=== PATIENT | female | born 1950 | race Caucasian/White ===

== ENCOUNTER 2017-01-03 08:23 | Inpatient (IN) | payer MEDICARE, BC ==
[2016-12-15 18:49] LABS: HEMATOCRIT 35.4 % (36.0-48.0); HEMOGLOBIN 11.2 g/dL (12.0-16.0)
[2016-12-15 18:59] LABS: CALCIUM, SERUM 9.2 MG/DL (8.5-10.4); CHLORIDE, SERUM 107 MMOL/L (96-112); CO2 (CARBON DIOXIDE) 25 MMOL/L (24-34); CREATININE 1.04 MG/DL (0.55-1.02); GFR AFRICAN AMERICAN 65 ML/MIN (>=60); GFR NON AFRICAN AMERICAN 56 ML/MIN (>=60); SODIUM, SERUM 143 MMOL/L (135-148)
[2016-12-15 19:00] LABS: BUN (BLOOD UREA NITROGEN) 19 MG/DL (6-23); GLUCOSE, SERUM 80 MG/DL (60-99)
--- NOTE | ~2017-01-03 | PREOPHP ---
PreOp History and Physical [address] [place]. [address] NAME: DEYSI PARRA : 50 STATUS : ADM IN [facility]#: [id number] AGE: 66 ADM/REG DATE : 01/03/17 MR#: [id number] REPORT SERV DATE: 01/03/17 DICTATED BY: DERRICK BEST DATE: 01/03/17 REPORT STATUS : Draft TRANSCRIBED BY: KENYA DATE: 01/03/17 CHIEF COMPLAINT: Back pain. HISTORY OF PRESENT ILLNESS: She is a 66-year-old female with intractable lower back pain and bilateral lower extremity pain, left side greater than right. She has failed multiple attempts at conservative treatment including injections, physical therapy, and medications. After discussion of risks and benefits, she elected to proceed with surgical intervention. REVIEW OF SYSTEMS: She denies chest pain, shortness of breath, and bowel or bladder changes. ALLERGIES: COMPAZINE. HOME MEDICATIONS: Include benzonatate, citalopram, clonidine, famotidine, gabapentin, gemfibrozil, loratadine, losartan, omeprazole, Zofran, pantoprazole, potassium, prednisone, simvastatin, verapamil, zolpidem. FAMILY HISTORY: Noncontributory. PAST MEDICAL HISTORY: Anemia, anxiety, osteoarthritis, hypertension, diet-controlled diabetes, high cholesterol, stroke, peripheral neuropathy, seizure disorder, gastric reflux, and bronchitis. PHYSICAL EXAMINATION: VITAL SIGNS: Height 5 feet 4 inches, weight 229, BMI 39.3. GENERAL: The patient is healthy appearing, in no acute distress. PSYCH: Alert and oriented x3. Normal mood and affect. GAIT: Antalgic. VASCULAR: No extremity swelling. SPINE: Decreased lumbar motion. NEUROLOGIC: Strength in lower extremities remains 5/5. No focal deficits. HEART: Regular rate and rhythm. LUNGS: Clear to auscultation. ABDOMEN: Soft, nontender, nondistended. Good bowel sounds. BREASTS AND RECTAL: Both deferred. IMAGING: I have reviewed the MRI scan. The patient does have L3 through S1 disk disease and stenosis with nerve compression. ASSESSMENT: L3 through S1 disk disease and stenosis, failed conservative treatment. PLAN: The patient presents today for surgical intervention. Consent was obtained. All questions answered. She is ready to proceed with surgery. JCE/MODL PreOp History and Physical [address] [place] [address] NAME: DEYSI PARRA : 50 STATUS : ADM IN PAT#: [id number] AGE: 66 ADM/REG DATE : 01/03/17 MR#: [id number] REPORT SERV DATE: 01/03/17 DICTATED BY: DERRICK BEST DATE: 01/03/17 REPORT STATUS : Draft TRANSCRIBED BY: KENYA DATE: 01/03/17 Derrick Best DO / [id number] CC: DO Sarkis Stanford M.D.
--- NOTE | ~2017-01-03 | DS ---
Discharge Summary [facility] [address] [place]. [address] NAME: DEYSI PARRA : 50 STATUS : DIS IN PAT#: [id number] AGE: 66 ADM/REG DATE : 01/03/17 MR#: [id number] REPORT SERV DATE: 01/20/17 DICTATED BY: DERRICK MORALES DATE: 01/19/17 REPORT STATUS : Draft TRANSCRIBED BY: KENYA DATE: 01/19/17 Data Collection from hospitalization DISCHARGE DIAGNOSES: 1. 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 2. Diet-controlled diabetes. 3. Hypertension. 4. Anemia. 5. Anxiety. 6. Osteoarthritis. 7. Hypercholesterolemia. 8. History of stroke. 9. Peripheral neuropathy. 10.Seizure disorder. 11.Gastric reflux. 12.Bronchitis. 13.Obstructive sleep apnea. 14.Anemia. 15.History of cerebral meningioma. 16.Irritable bowel syndrome. 17.Gastroesophageal reflux disease. CONSULTATIONS: Sabi Palacios NP PROCEDURES PERFORMED: L3 through S1 open laminectomy and bilateral foraminotomies with decompression of the L3 through S1 nerve roots bilaterally, L3 through S1 posterolateral fusion bilaterally, L3 through S1 posterior segmental spinal instrumentation using Medtronic pedicle screws, local morcellized autograft, allograft bone matrix, neuromonitoring, intraoperative O-arm CT scan with computer navigation on 01/03/2017. PATHOLOGY: Bone and soft tissue, lumbar spine - bone and fibrocartilage, no significant microscopic abnormality. MEDICATIONS: Celexa 20 mg every morning, Pepcid 40 mg at bedtime, Neurontin 800 mg twice a day, Keppra 500 mg twice a day, Lopid 600 mg twice a day, Claritin 10 mg every morning, Prilosec 20 mg every morning, Catapres 0.1 mg every day at bedtime, Verelan PM 300 mg every morning, Ventolin two puffs via inhaler every six hours as needed, Flexeril 10 mg one tablet every eight hours as needed for spasm, and Percocet 5/325 one to two tablets every four hours as needed for pain. CONDITION AT DISCHARGE: Stable. DISPOSITION: The patient was discharged to [facility] on a diabetic diet with activities as instructed. She would follow up with me two weeks following discharge. HOSPITAL COURSE: This is a 66-year-old female with intractable lower back pain and bilateral lower extremity pain, left side greater than right. She has failed multiple attempts at conservative treatment. The patient has L3 through S1 disk disease and stenosis with lumbar Discharge Summary [place] [id number] [facility] [address] [facility] [place] [address] NAME: DEYSI PARRA : 50 STATUS : DIS IN PAT#: [id number] AGE: 66 ADM/REG DATE : 01/03/17 MR#: [id number] REPORT SERV DATE: 01/20/17 DICTATED BY: DERRICK MORALES DATE: 01/19/17 REPORT STATUS : Draft TRANSCRIBED BY: KENYA DATE: 01/19/17 radiculopathy. Treatment options were discussed and it was elected to proceed with surgical intervention. She was admitted to the hospital at this time for further evaluation and treatment. Upon admission, she was taken to the operating room where she underwent the above-mentioned procedure. She tolerated this well, and there were no complications. Postoperatively, she was seen by Sabi Palacios. The patient has a longstanding history of type 2 diabetes. She had been asked to see the patient regarding diabetes management. The patient said that she rarely checks her blood sugars. She only checks them if she has symptoms and she is diet controlled at home. We were going to initiate diabetic education for her regarding her diet and the importance of monitoring her blood sugars at home. She does have a meter. She recommended initiation of fingerstick blood sugars before meals and at bedtime and check one at 2:00 a.m. x1. She was started on level 2 sliding scale insulin. She does have diabetic neuropathy. Her Neurontin and Celexa were continued. She has obstructive sleep apnea as well as a history of asthma. She uses no CPAP at home. We were going to use O2 to keep her saturations 92% or greater. We would do continuous O2 saturation monitoring while on a FOOD QUALITY TECHNICIAN pump for pain control. She said she does have sleep apnea. We would also continue extensive monitoring and initiate her albuterol as needed and continue her home medication of Claritin. Verapamil and clonidine were continued. She has a history of seizures. She said that she no longer sees Dr. Jessica Ramirez, and her seizures are managed by her primary care physician. Her home dose of Keppra was continued. Her home dose of Lopid was continued for hyperlipidemia. Her Prilosec and Pepcid were going to be continued as well. On postop day #1, her pain was controlled. The FOOD QUALITY TECHNICIAN was discontinued. She did complain of a headache. She was evaluated by Physical Therapy. She underwent diabetes education. On 01/05/2017, she still complained of a headache. She had no chest pain or shortness of breath. She remained afebrile. Blood pressure was controlled. Potassium supplementation was given. On 01/07/2017, her pain was improving. Her headache had also improved. We encouraged her to increase her activity as tolerated. On 01/08/2017, her blood pressure was controlled. The patient is noncompliant with CPAP. The patient continued to complain of a headache. Her physical therapy was placed on hold as she was unable to tolerate any activity due to her headache. On 01/10/2017, she said her headache had resolved after a blood patch was performed. Discharge planning was performed. On 01/11/2017, her pain was controlled. Her headache had resolved. She was evaluated by Physical Therapy. Discharge instructions were given. Due to her improved and stable condition, she was discharged to [facility] with the above-stated instructions. Information collected by: Shaniqua Blank I submit the above information as my discharge summary. PHONG/KENYA Derrick Morales DO / [id number] Discharge Summary [address] [address] NAME: DEYSI PARRA JOHANN : 50 STATUS : DIS IN PAT#: [id number] AGE: 66 ADM/REG DATE : 01/03/17 MR#: [id number] REPORT SERV DATE: 01/20/17 DICTATED BY: DERRICK MORALES DATE: 01/19/17 REPORT STATUS : Draft TRANSCRIBED BY: KENYA DATE: 01/19/17 CC: DO Sarkis Stanford M.D. [facility]
--- NOTE | ~2017-01-03 | CN ---
Consultation Report [place] [address] [place]. [address] NAME: DEYSI PARRA : 50 STATUS : ADM IN PAT#: [id number] AGE: 66 ADM/REG DATE : 01/03/17 MR#: [id number] REPORT SERV DATE: 01/04/17 DICTATED BY: SABI JACOBSEN DATE: 01/03/17 REPORT STATUS : Draft TRANSCRIBED BY: MODRachna DATE: 01/03/17 CONSULTATION REPORT DATE OF CONSULTATION: 01/03/2017 REASON FOR CONSULTATION: Consulted for diabetes management. REQUESTING PHYSICIAN: Derrick Morales DO. IDENTIFYING DATA: 1. PCP, Sarkis Funez M.D. 2. Urologist in the past, Carter eLe M.D. 3. Wrapping Checker, previously saw someone in [place] but she cannot remember the name. No longer seeing him. 4. Orthopedist, Derrick Morales DO. 5. Neurologist, Jessica Ramirez M.D. HISTORY OF PRESENT ILLNESS: This is a pleasant 66-year-old, female, who is presented to Dr. Morales with intractable lower back pain and bilateral lower extremity pain on the left side greater than the right. She failed multiple attempts at conservative outpatient treatment, so she presents for surgery. She is status post L3-S1 open posterior lumbar laminectomy with fusion on 01/03/2017. The patient has a long-standing history of diabetes type 2, history of seizures, CVA, diabetic neuropathy, hyperlipidemia, sleep apnea for which she uses no CPAP, previous laser surgery. We have been consulted to help manage the patient's blood sugars as patient. Presently, the patient states that she rarely checks her blood sugars only if she has symptoms and she is diet controlled at home. The patient's history was obtained through careful interview with the patient, coupled with review of [facility], [facility], hr business partner consultant notes and old medical records. PAST MEDICAL HISTORY: 1. Seizures. 2. Cerebral meningioma in 2008. 3. Anemia. 4. CVA. 5. Diabetic neuropathy of her feet. 6. Hypertension. 7. High cholesterol. 8. Chronic bronchitis and asthma. 9. Myopia and presbyopia. 10.Arthritis. 11.IBS. 12.Renal calculi. 13.Obstructive sleep apnea with no use of CPAP. Consultation Report [facility] [address] [place]. [address] NAME: DEYSI PARRA : 50 STATUS : ADM IN PAT#: [id number] AGE: 66 ADM/REG DATE : 01/03/17 MR#: [id number] REPORT SERV DATE: 01/04/17 DICTATED BY: SABI JACOBSEN DATE: 01/03/17 REPORT STATUS : Draft TRANSCRIBED BY: KENYA DATE: 01/03/17 14.GERD. 15.Diabetes diagnosed in 2002 where she states her average blood sugars were 120-138. HOME MEDICATIONS: 1. Albuterol HFA two puffs inhalation every 6 hours p.r.n., shortness of breath. 2. Celexa 20 mg p.o. every morning. 3. Catapres 0.1 mg tablet every day at bedtime. 4. Pepcid 40 mg p.o. at bedtime. 5. Neurontin 800 mg p.o. twice a day. 6. Lopid 600 mg p.o. twice a day. 7. Keppra 500 mg p.o. twice a day. 8. Claritin 10 mg p.o. every morning. 9. Prilosec 20 mg p.o. every morning. 10.Verapamil extended release 300 mg capsules 300 mg p.o. every morning. ALLERGIES: PHENOTHIAZINE SPECIFICALLY COMPAZINE. SOCIAL HISTORY: The patient is approximately 48 years old. States she has three children. Lives in a two-level home. No smoking. Occasional use of peppermint schnapps. No illicit drug use. FAMILY HISTORY: Father had heart disease, cancer, and arthritis. Mother had heart disease, hypertension, and arthritis. Maternal grandparents had heart disease, hypertension, arthritis, and cancer. SURGICAL HISTORY: 1. Lumbar spinal stenosis surgery in 2008, right elbow surgery 2012, and left hand surgery. 2. Appendectomy in 1991. 3. Right hand surgery in 2008. 4. Anterior cervical discectomy and fusion on 09/06/2016. 5. Hemorrhoidectomy was either she states 2008 or 2009. 6. Cysto with stone removal in 2009. 7. Lithotripsy in 04/2015. 8. Hysterectomy in 1981. 9. in 1979. 10.Colonoscopy in 2010. 11.CyberKnife for cerebral meningioma in 2008. REVIEW OF SYSTEMS: Are negative other than what is included in HPI. The patient is very sleepy but she states she has no chest pain, no nausea or vomiting. No shortness of breath. No fever. No abdominal pain. Displays no agitation. PHYSICAL EXAMINATION: Consultation Report [place] [address] [place]. [address] NAME: DEYSI PARRA : 50 STATUS : ADM IN [facility]#: [id number] AGE: 66 ADM/REG DATE : 01/03/17 MR#: [id number] REPORT SERV DATE: 01/04/17 DICTATED BY: SABI JACOBSEN DATE: 01/03/17 REPORT STATUS : Draft TRANSCRIBED BY: KENYA DATE: 01/03/17 VITAL SIGNS: From today, blood pressure 152/87, respiratory rate 14, heart rate 90, O2 saturation 94% on 2 L nasal cannula. GENERAL: This is a very pleasant, 66-year-old, female, resting in bed in no acute distress. She is very sleepy. She will rouse without difficulty. NEURO: Head is atraumatic and normocephalic. The patient is alert and oriented x3. Mood is pleasant and appropriate. Cranial nerves intact. NECK: Supple. Trachea is midline. No JVD noted. No obvious thyromegaly or lymphadenopathy. EENT: Her sclerae is nonicteric. Her pupils are equal, reactive to light. Her nares are patent. Mucous membranes are moist. Tongue is midline without deviation and her soft palate rises with phonation. CHEST: No pain with palpation. LUNGS: Clear to auscultation bilaterally. She has normal respiratory effort. Her O2 saturation is 94% on 2 L nasal cannula. She is encouraged to use her incentive spirometer every one hour while she is awake. CARDIOVASCULAR: S1, S2. No obvious murmurs, rubs, or gallops. Auscultation of rhythm is regular on 12/15/2016. Her EKG showed sinus rhythm with first degree AV block with a rate of 76. She is on defensive monitoring. ABDOMEN: Soft, nontender. She has hypoactive bowel sounds. No organomegaly palpable. EXTREMITIES: Pulses present and equal bilaterally. No edema. No calf tenderness. She has TEDs and SCDs intact. SKIN: Warm and dry. No unusual rashes or lesions. Normal color and turgor. PSYCHIATRIC: She is pleasant and cooperative. Appropriate mood and affect. SURGICAL WOUND SITE: Dressing clean, dry, and intact. She has a Davol drain compressed with sanguinous drainage noted. LABORATORY DATA: Sodium 143, potassium 4.0, chloride 107, BUN 19, creatinine 1.04, GFR 65, glucose 80, calcium 9.2. Hemoglobin 11.2, hematocrit 35.4, blood sugars ranged today 122, 212, and 231. ASSESSMENT AND PLAN: 1. Diabetes type 2: The patient admits to being diabetic and states she is diet controlled and on no medications at home. She does relate that she checks her blood sugars rarely only when she has symptoms of low blood sugar or she feels that her blood sugar is high. We will initiate a diabetic education for her regarding diet and importance of monitoring her blood sugars at home. She does have a meter. We will initiate fingerstick blood sugars a.c. and h.s. and check one at 2 a.m. x1. Start her on a sliding scale insulin level 2. 2. Diabetic neuropathy: Aware. We will continue her Neurontin and Celexa per home medications. 3. Obstructive sleep apnea: She does have a history of asthma as well as allergies also. Aware. She uses no CPAP at home. We will use O2 to keep her sats 92% or greater. We will do continuous O2 saturation monitoring while on a STOCK LETTERER pump for pain control since she has sleep apnea. We will also continue defensive monitoring and initiate her albuterol as needed p.r.n. and continue her home med of Claritin. Consultation Report [address] [place]. [address] NAME: DEYSI PARRA JOHANN : 50 STATUS : ADM IN PAT#: [id number] AGE: 66 ADM/REG DATE : 01/03/17 MR#: [id number] REPORT SERV DATE: 01/04/17 DICTATED BY: SABI JACOBSEN DATE: 01/03/17 REPORT STATUS : Draft TRANSCRIBED BY: KENYA DATE: 01/03/17 4. Hypertension. Aware. We will continue her home medication. She is on verapamil and clonidine daily. 5. Seizures. Aware. She previously has seen Dr. Jessica Ramirez, a neurologist. She states she has no longer been seen her and is managed by her PCP. We will continue her home dose of Keppra. 6. Hyperlipidemia. Aware. We will continue her home medication of Lopid. 7. GERD. Aware. We will continue her Prilosec in the morning and her Pepcid at HS as per home medication. Am. labs will be BMP, magnesium, CBC, and a hemoglobin A1c. The Hospitalist Group would like to thank you for this consultation. Please let us know if we could be of any further assistance. DES Sabi Jacobsen NP / [id number] CC: Derrick Morales DO
--- NOTE | ~2017-01-03 | OP ---
Record Of Operation [facility] [address] [place]. [address] NAME: DEYSI PARRA : 50 STATUS : ADM IN PAT#: [id number] AGE: 66 ADM/REG DATE : 01/03/17 MR#: [id number] REPORT SERV DATE: 01/03/17 DICTATED BY: DERRICK BEST DATE: 01/03/17 REPORT STATUS : Draft TRANSCRIBED BY: MODL DATE: 01/03/17 DATE OF PROCEDURE: 01/03/2017 PREOPERATIVE DIAGNOSIS: L3 through S1 disk disease and stenosis with lumbar radiculopathy. POSTOPERATIVE DIAGNOSIS: L3 through S1 disk disease and stenosis with lumbar radiculopathy. PROCEDURE: L3 through S1 open laminectomy and bilateral foraminotomies with decompression of the L3 through S1 nerve roots bilaterally, L3 through S1 posterolateral fusion bilaterally, L3 through S1 posterior segmental spinal instrumentation using Medtronic pedicle screws, local morcellized autograft allograft bone matrix, neuromonitoring, intraoperative O-arm CT scan with computer navigation. SURGEON: Derrick Best DO ANESTHESIA: General. ESTIMATED BLOOD LOSS: 300 mL. COMPLICATIONS: Durotomy. INDICATIONS: The patient is a 66-year-old with intractable back and leg pain, failed multiple attempts at conservative treatment including injections, therapy, and medications. After discussion of risks and benefits, she elected to proceed with surgical intervention. PROCEDURE IN DETAIL: I identified the patient in the holding area, consent was obtained, answered all of her questions, proceeded with surgery. The patient underwent general anesthesia with endotracheal intubation, prepped and draped in the usual sterile fashion. Operative safety pause was performed, and then we proceeded with surgery. A midline longitudinal incision was made from L3 down to S1, taken down through the fascial layer. Paraspinous muscles subperiosteally elevated to the tips of transverse processes. Self- retaining retractors were placed. The O-arm registration frame was placed on the spinous process. O-arm was brought in for intraoperative CT scan. Computer registration materials were verified. Under computer guidance, pedicle screws from Medtronic were placed from L3 through S1 bilaterally. O-arm was brought back in to verify good placement of instrumentation. Rongeur was then used to remove spinous processes and underlying lamina at L3 through S1. True removed the remaining lamina, underlying ligamentum flavum, and performed foraminotomies and partial facetectomies L3 through S1 to decompress the L3-S1 nerve roots bilaterally. From the patient's previous surgery, there was a significant amount of scar tissue and erosion over portion of the dura that was not amenable to suture repair as there was just a defect over the dural sac. At the end of the case, it was covered with a DuraGen patch and Tisseel sealant for good seal with no further fluid leak. Rods were contoured to appropriate shape and length, placed over the screws L3 through S1. Set screws were placed and they were final tightened. A high-speed decorticating corby was used to decorticate the remaining bony surfaces and transverse processes L3 through S1 bilaterally. Irrigation performed. Hemostasis achieved. Rods were placed over the screws Record Of Operation [address] [address] NAME: DEYSI PARRA : 50 STATUS : ADM IN [facility]#: [id number] AGE: 66 ADM/REG DATE : 01/03/17 MR#: [id number] REPORT SERV DATE: 01/03/17 DICTATED BY: DERRICK BEST DATE: 01/03/17 REPORT STATUS : Draft TRANSCRIBED BY: MODL DATE: 01/03/17 from L3 through S1 bilaterally. Set screws were placed and final tightened. Irrigation was performed. Local morcellized autograft and allograft bone matrix were packed over the decorticated surfaces, L3 through S1 bilaterally. A subfascial drain was placed. A gram of vancomycin powder sprinkled over the surgical wound. Layered closure performed. Sterile dressings applied. The patient awoke and extubated, taken to the recovery room in stable condition. OPERATIVE FINDINGS: L3 through S1 disk disease and stenosis. ZE/KENYA Derrick Best DO / [id number] CC: Derrick Best DO
[~2017-01-03 08:23] MED LIST: CARDCD360 PO; CAT1 PO; CELEXA20 PO; CELEXA40 MG PO; CLARIT10 PO; FLEX PO; GLUCPH PO; KEPPRA250 PO; KEPPRA500 PO; LOPID6 PO; LORTAB 5 PO; LOTE40 PO; MACROBID PO; NEUR600 PO; NEUR800 PO; PCET PO; PEPCID40 MG PO; PRILO PO; RELA5 PO; ULTRAM50 PO; VENTOLIN HFA INH; VERELAN PM300 MG PO; ZANTAC150 MG PO
[2017-01-04 04:51] LABS: BASOPHILS 0 %; EOSINOPHILS 0 %; HEMOGLOBIN 9.8 g/dL (12.0-16.0); IMMATURE GRANULOCYTES 0.3 %; IMMATURE GRANULOCYTES ABSOLUTE 0.03 10/3/uL (0.0-0.11); LYMPHOCYTES 8.2 %; LYMPHOCYTES ABSOLUTE 0.94 10/3/uL (0.67-4.30); MEAN CORPUSCULAR HEMOGLOB 27.1 pg (26.0-34.0); MEAN CORPUSCULAR VOLUME 84.8 fL (80-100); MEAN PLATELET VOLUME 9.4 fL (9.2-13.0); MONOCYTES ABSOLUTE 0.69 10/3/uL (0.21-1.20); NEUTROPHILS 85.5 %; NEUTROPHILS ABSOLUTE 9.87 10/3/uL (2.02-8.40); PLATELET COUNT 400 10/3/uL (150-400); RBC DISTRIBUTION WIDTH 16.8 % (12.0-16.0); RED CELL COUNT 3.61 10/6/uL (4.0-5.6)
[2017-01-04 04:52] LABS: HEMATOCRIT 30.6 % (36.0-48.0); MANUAL DIFF NO %; WHITE BLOOD CELLS 11.5 10/3/uL (4.5-10.5)
[2017-01-04 05:06] LABS: BUN (BLOOD UREA NITROGEN) 17 MG/DL (6-23); CHLORIDE, SERUM 108 MMOL/L (96-112); CO2 (CARBON DIOXIDE) 22 MMOL/L (24-34); GFR AFRICAN AMERICAN 89 ML/MIN (>=60); GFR NON AFRICAN AMERICAN 77 ML/MIN (>=60); POTASSIUM, SERUM 3.8 MMOL/L (3.5-5.3); SODIUM, SERUM 143 MMOL/L (135-148)
[2017-01-04 05:09] LABS: CALCIUM, SERUM 8.1 MG/DL (8.5-10.4); GLUCOSE, SERUM 132 MG/DL (60-99)
[2017-01-05 05:07] LABS: HEMOGLOBIN 8.2 g/dL (12.0-16.0)
[2017-01-05 05:09] LABS: HEMATOCRIT 26.8 % (36.0-48.0)
[2017-01-05 05:17] LABS: CALCIUM, SERUM 7.8 MG/DL (8.5-10.4); CHLORIDE, SERUM 109 MMOL/L (96-112); CO2 (CARBON DIOXIDE) 23 MMOL/L (24-34); GFR AFRICAN AMERICAN 105 ML/MIN (>=60); GFR NON AFRICAN AMERICAN 90 ML/MIN (>=60); POTASSIUM, SERUM 3.3 MMOL/L (3.5-5.3); SODIUM, SERUM 142 MMOL/L (135-148)
[2017-01-05 05:19] LABS: BUN (BLOOD UREA NITROGEN) 13 MG/DL (6-23); GLUCOSE, SERUM 105 MG/DL (60-99)
[2017-01-06 04:44] LABS: HEMATOCRIT 27.1 % (36.0-48.0); HEMOGLOBIN 8.4 g/dL (12.0-16.0)
[2017-01-06 04:46] LABS: BUN (BLOOD UREA NITROGEN) 13 MG/DL (6-23); CALCIUM, SERUM 8.2 MG/DL (8.5-10.4); CHLORIDE, SERUM 114 MMOL/L (96-112); CO2 (CARBON DIOXIDE) 21 MMOL/L (24-34); CREATININE 0.77 MG/DL (0.55-1.02); GFR AFRICAN AMERICAN 93 ML/MIN (>=60); GFR NON AFRICAN AMERICAN 80 ML/MIN (>=60); GLUCOSE, SERUM 112 MG/DL (60-99); POTASSIUM, SERUM 3.9 MMOL/L (3.5-5.3); SODIUM, SERUM 144 MMOL/L (135-148)
[2017-01-07 06:09] LABS: CALCIUM, SERUM 8.6 MG/DL (8.5-10.4); CHLORIDE, SERUM 110 MMOL/L (96-112); CO2 (CARBON DIOXIDE) 21 MMOL/L (24-34); CREATININE 0.57 MG/DL (0.55-1.02); GFR AFRICAN AMERICAN 112 ML/MIN (>=60); GFR NON AFRICAN AMERICAN 97 ML/MIN (>=60); GLUCOSE, SERUM 125 MG/DL (60-99); POTASSIUM, SERUM 3.5 MMOL/L (3.5-5.3); SODIUM, SERUM 143 MMOL/L (135-148)
[2017-01-07 06:10] LABS: BUN (BLOOD UREA NITROGEN) 7 MG/DL (6-23)
[2017-01-08 05:22] LABS: BASOPHILS 0.1 %; BASOPHILS ABSOLUTE 0.01 10/3/uL (0.0-0.16); EOSINOPHILS 1.8 %; EOSINOPHILS ABSOLUTE 0.16 10/3/uL (0.0-0.53); HEMATOCRIT 27.6 % (36.0-48.0); HEMOGLOBIN 8.6 g/dL (12.0-16.0); IMMATURE GRANULOCYTES 0.1 %; IMMATURE GRANULOCYTES ABSOLUTE 0.01 10/3/uL (0.0-0.11); LYMPHOCYTES 20.7 %; LYMPHOCYTES ABSOLUTE 1.87 10/3/uL (0.67-4.30); MEAN CORPUS HGB CONC 31.2 g/dL (32.0-36.0); MEAN CORPUSCULAR HEMOGLOB 26.5 pg (26.0-34.0); MEAN CORPUSCULAR VOLUME 84.9 fL (80-100); MEAN PLATELET VOLUME 9.3 fL (9.2-13.0); MONOCYTES 7.4 %; MONOCYTES ABSOLUTE 0.67 10/3/uL (0.21-1.20); NEUTROPHILS 69.9 %; PLATELET COUNT 469 10/3/uL (150-400); RBC DISTRIBUTION WIDTH 17.2 % (12.0-16.0); RED CELL COUNT 3.25 10/6/uL (4.0-5.6)
[2017-01-08 05:23] LABS: MANUAL DIFF NO %
[2017-01-08 05:26] LABS: CALCIUM, SERUM 8.7 MG/DL (8.5-10.4); CHLORIDE, SERUM 109 MMOL/L (96-112); CO2 (CARBON DIOXIDE) 23 MMOL/L (24-34); CREATININE 0.78 MG/DL (0.55-1.02); GFR AFRICAN AMERICAN 92 ML/MIN (>=60); GFR NON AFRICAN AMERICAN 79 ML/MIN (>=60); POTASSIUM, SERUM 3.9 MMOL/L (3.5-5.3); SODIUM, SERUM 142 MMOL/L (135-148)
[2017-01-08 05:27] LABS: BUN (BLOOD UREA NITROGEN) 13 MG/DL (6-23); GLUCOSE, SERUM 97 MG/DL (60-99)
[2017-01-09 04:48] LABS: HEMATOCRIT 28.4 % (36.0-48.0); HEMOGLOBIN 8.9 g/dL (12.0-16.0)
[2017-01-09 05:00] LABS: BUN (BLOOD UREA NITROGEN) 13 MG/DL (6-23); CALCIUM, SERUM 8.8 MG/DL (8.5-10.4); CHLORIDE, SERUM 107 MMOL/L (96-112); CO2 (CARBON DIOXIDE) 25 MMOL/L (24-34); CREATININE 0.68 MG/DL (0.55-1.02); GFR AFRICAN AMERICAN 106 ML/MIN (>=60); GFR NON AFRICAN AMERICAN 91 ML/MIN (>=60); GLUCOSE, SERUM 106 MG/DL (60-99); POTASSIUM, SERUM 4.5 MMOL/L (3.5-5.3); SODIUM, SERUM 140 MMOL/L (135-148)
== END 2017-01-11 17:38 | DRG 460 ==
LOC: SDC/OF 08:23 → PACU 13:44 → 3SO 15:42
PROVIDERS: Hospitalist; Nurse Practitioner Acute Care; Orthopaedic Surgery
PROC: 4A11X4G Monitoring of Peripheral Nervous Electrical Activity, Intraoperative, External Approach (ICD-10-PCS; 2017-01-03)
PROC: 0SG1071 Fusion of 2 or more Lumbar Vertebral Joints with Autologous Tissue Substitute, Posterior Approach, Posterior Column, Open Approach (ICD-10-PCS; principal; 2017-01-03 09:45)
PROC: 0SG3071 Fusion of Lumbosacral Joint with Autologous Tissue Substitute, Posterior Approach, Posterior Column, Open Approach (ICD-10-PCS; 2017-01-03 09:45)
DX: M51.16 Intervertebral disc disorders with radiculopathy, lumbar region (principal); E11.40 Type 2 diabetes mellitus with diabetic neuropathy, unspecified; G47.33 Obstructive sleep apnea (adult) (pediatric); I10 Essential (primary) hypertension; E78.5 Hyperlipidemia, unspecified; K21.9 Gastro-esophageal reflux disease without esophagitis
CPT/HCPCS: 71010; 80048; 82962; 83036; 83735; 84132; 85014; 85018; 85025; 87641; 88304; 88311; 93005; 97162-GP; 97164-GP; A9270-GY; C1713; C1768; G8978-CK-GP; G8978-CL-GP; G8979-CJ-GP; G8979-CK-GP; G8980-CK-GP; J0690; J1170; J1644; J2250; J2270; J2370; J2405; J2710; J3010; J3370; Q9967